=== PATIENT | male | born 1965 | race Caucasian/White ===

== ENCOUNTER 2022-07-04 07:04 | Emergency (ER) | payer OTHER, BC, SELFPAY ==
--- NOTE | ~2022-07-04 | XR_ITS ---
EXAMINATION: XR hand RT 2V DATE: 07/04/2022 07:41 INDICATION: Right hand trauma with laceration to the digits. TECHNIQUE: Posteroanterior, oblique and lateral views of the right hand were obtained. COMPARISON: None. FINDINGS: Bone alignment is normal. No fractures. 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 Diffuse soft tissue swelling about the righ t hand most prominent at the third digit. No radiopaque foreign bodies. IMPRESSION: 1. No acute osseous abnormality or radiopaque foreign body. Reviewed, dictated and finalized at location A.
[2022-07-04 07:16] VITALS: BP 147/87; PULSE 67; RESP 18; TEMP 36.5; O2SAT 100
--- NOTE | 2022-07-04 07:25 | ED.GENADULT ---
HPI - General Adult General Chief complaint: Wound/Laceration Stated complaint: right hand injury - laceration with drill Time Seen by Provider: 07/04/22 07:14 History of Present Illness HPI narrative: 56-year-old male presents for evaluation of lacerations on his right hand. Patient was working with a drill at this morning and he had a new pair of gloves which were a little bit too large. The fabric of the gloves became tangled in the drill bit and twisted thus pinching his index and middle finger. Patient is allergic to tetanus and refusing tetanus shot. He has informed me that he has had multiple cuts over the past 35 years and has never gotten tetanus and does not want the vaccination. Related Data Allergies Allergy/AdvReac Type Severity Reaction Status Date / Time Penicillins Allergy Unknown Unknown Verified 07/04/22 07:16 Tetanus Vaccines and Toxoid Allergy Unknown Fever Verified 07/04/22 07:16 Review of Systems Review of Systems: CONSTITUTIONAL: Denies fever, chills, or sweats. EYES: Denies visual changes, redness, or discharge. ENT: Denies rhinorrhea, congestion, sore throat, or otalgia. CARDIOVASCULAR: Denies chest pain, palpitations, or edema. RESPIRATORY: Denies cough or dyspnea. GASTROINTESTINAL: Denies abdominal pain, nausea, vomiting, or diarrhea. GENITOURINARY: Denies dysuria or hematuria. SKIN: Denies rash or itching. MUSCULOSKELETAL: Denies back pain, joint pain, or myalgia. NEUROLOGIC: Denies headache, numbness, or weakness. PSYCHIATRIC: Denies anxiety or depression. Exam Narrative: GENERAL: Well-appearing, well-nourished, and in no acute distress. HEAD: Normocephalic, atraumatic. EYES: PERRLA and EOMI. ENT: Nares clear, no rhinorrhea or epistaxis. Mucous membranes moist. NECK: Supple. CHEST: Clear to auscultation. No respiratory distress. HEART: Regular rate and rhythm. No murmur heard. Normal peripheral pulses. ABDOMEN: Soft, nontender, nondistended, normal active bowel sounds. EXTREMITIES: Normal range of motion. No edema. SKIN: Warm, dry, no rash., 2 lacerations on the volar side of the third and fourth digits. Right ring finger with a 1.5 cm laceration across the volar DIP joint, long finger with a 1.5 cm laceration across the volar side of the PIP joint, no tendon involvement 5 out of 5 strength in flexion, extension, abduction and abduction NEURO: No focal deficits. Alert and oriented x3. PSYCH: Normal mood and affect. Course Vital Signs Vital signs: Vital Signs Temperature 97.7 F 07/04/22 07:16 Pulse Rate 667 H 07/04/22 07:16 Respiratory Rate 18 07/04/22 07:16 Blood Pressure 147/87 H 07/04/22 07:16 Pulse Oximetry 100 07/04/22 07:16 Temperature 97.7 F 07/04/22 07:16 Pulse Rate 667 H 07/04/22 07:16 Respiratory Rate 18 07/04/22 07:16 Blood Pressure 147/87 H 07/04/22 07:16 Pulse Oximetry 100 07/04/22 07:16 Procedures Laceration Laceration 1: ====== Skin Level ====== ====== Subcutaneous Layer ====== ====== Muscle Layer ====== ====== Tendon Layer ====== Dressing: Ring finger with a 1.5 cm laceration at the DIP joint on the volar side. Using 5-0 Ethilon wound edge approximation with a single running and locking suture running horizontally across the joint. Good wound edge approximation, cosmesis, hemostasis. No complications. Right middle finger with a 1.5 cm laceration overlying the volar side of the PIP joint. Using 5-0 Ethilon a running and locking suture was used to close the wound with good wound edge approximation, cosmesis, hemostasis. No complications. Digital blocks used in each phalanx. Medical Decision Making MDM Narrative Medical decision making narrative: Wounds cleaned, debrided, irrigated copiously running locking sutures to close both wounds without complication. Patient instructed to follow-up in 7 to 10 days for suture removal. Vital Signs Vital Signs: Vital Signs Temperature 97.7 F
[2022-07-04 09:42] VITALS: BP 146/86; PULSE 68; RESP 16; O2SAT 98
== END 2022-07-04 09:43 | disposition home or self-care (01) ==
PROVIDERS: Emergency Provider Emergency Medicine; PCP Internal Medicine
DX: S61.212A Laceration without foreign body of right middle finger without damage to nail, initial encounter (principal); S61.214A Laceration without foreign body of right ring finger without damage to nail, initial encounter; W23.1XXA Caught, crushed, jammed, or pinched between stationary objects, initial encounter
CPT/HCPCS: 12002; 73120; 99283

== ENCOUNTER 2025-08-07 14:20 | Emergency (ER) | payer OTHER, BC, SELFPAY ==
--- NOTE | ~2025-08-07 | XR_ITS ---
EXAMINATION: XR knee RT 3V, 08/07/2025 14:40 CDT HISTORY: pain without trauma COMPARISON: No comparisons available. Findings: No acute fracture or malalignment. No significant degenerative changes. Soft tissues unremarkable. Impression: No acute fracture or malalignment. Reviewed, dictated and finalized at location P. Impression: No acute fracture or malalignment.
[2025-08-07 14:32] VITALS: BP 143/92; PULSE 56; RESP 18; TEMP 36.2; O2SAT 100
--- NOTE | 2025-08-07 14:39 | ED.LOWEXIN ---
HPI - Extremity Injury (Lower) General Chief Complaint: Extremity Injury, Upper Stated Complaint: R Knee Pain patient presents to the [facility] accompanied by spouse with complaints of increased pain and right knee that began over the last several weeks. Patient noted that he did taken 800 mg ibuprofen today and this did help with pain. 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 Patient concerned about arthritis versus a meniscus tear. Patient does note occasionally using a brace to the area. Denies numbness, tingling, swelling, redness or bruising. Related Data Allergies Allergy/AdvReac Type Severity Reaction Status Date / Time Penicillins Allergy Unknown Unknown Verified 08/07/25 14:33 Tetanus Vaccines and Toxoid Allergy Unknown Fever Verified 08/07/25 14:33 Review of Systems Constitutional: Constitutional: Reports as per HPI, Denies chills, Denies fatigue, Denies fever(s) and Denies weakness Eyes: Eyes: Reports no additional eye complaints ENT: Reports system reviewed and no additional complaints, except as documented Cardiovascular: Cardiovascular: Reports no additional cardiovascular complaints Respiratory: Respiratory: Reports no additional respiratory complaints Gastrointestinal: Gastrointestinal: Reports no additional gastrointestinal complaints Genitourinary: Genitourinary: Reports no additional male genitourinary complaints Musculoskeletal: Musculoskeletal: Reports as per HPI, Reports arthralgias, Denies joint swelling and Denies muscle cramps Integumentary/Breasts: Skin/Breast: Reports as per HPI, Denies pruritus, Denies rash and Denies skin ulcer Neurologic: Reports as per HPI, Denies numbness and Denies weakness Psychiatric: Psychiatric: Reports no additional psychiatric complaints Endocrine: Endocrine: Reports no additional endocrine complaints Hematologic/Lymphatic: Hematologic/Lymphatic: Reports no additional hematologic/lymphatic complaints Allergic/Immunologic: Allergic/Immunologic: Reports no additional allergic/immunologic complaints Exam Const: General: healthy appearing and no acute distress Nutritional Appearance: well nourished Orientation/consciousness: patient oriented x3 Limitations: no limitations Resp: Effort & Inspection: normal respiratory effort Auscultation: clear to auscultation bilaterally Cardio: Rate: regular rate Rhythm: regular rhythm Skin: General skin exam: normal color Rashes: no rashes Wounds: no wounds Neuro: General: patient oriented x3 Speech: normal speech Gait exam (Neuro): Normal gait present Extrem: Right lower extremity: knee ( Callus noted over right knee) Details: abnormal to inspection, tenderness Location: of the medial joint line, normal ROM and knee ligament exam normal; no abrasions, no ecchymosis, no crepitus, no deformity and no unusual warmth Psych: Mental Status: mental status grossly normal Affect: normal affect Attitude: cooperative Course Course Level of Care: Express Care Visit Vital Signs Vital signs: Vital Signs Temperature 97.1 F L 08/07/25 14:32 Pulse Rate 56 L 08/07/25 14:32 Respiratory Rate 18 08/07/25 14:32 Blood Pressure 143/92 H 08/07/25 14:32 Pulse Oximetry 100 08/07/25 14:32 Oxygen Delivery Room Air 08/07/25 14:32 Temperature 97.1 F L 08/07/25 14:32 Pulse Rate 56 L 08/07/25 14:32 Respiratory Rate 18 08/07/25 14:32 Blood Pressure 143/92 H 08/07/25 14:32 Pulse Oximetry 100 08/07/25 14:32 Oxygen Delivery Room Air 08/07/25 14:32 MDM - Extremity Injury (Lower) MDM Narrative Medical decision making narrative: x-rays ordered. Potential for internal injury recommended follow-up with primary care or orthopedics The patient was evaluated by myself in the express care. History is obtained from patient who is an independent historian and physical exam was performed. Available medical records were reviewed at this time. Exam findings show no acute concerns or changes; patient is non-toxic appearing and is in no distress. Patient is appropriate for outpatient treatment and follow-up. I have evaluated and discussed social determinants of health with the patient that could potentially impact subsequent diagnosis and treatment plans. Differential diagnosis and treatment plan were discussed with the patient. Patient agrees with discussion and after shared medical decision making agrees with plan of care. All questions were answered to the patient's satisfaction. Differential Diagnosis Differential diagnosis: Likely ankle sprain and strain, acute internal derangement of knee and other Medical Records Attestation: I reviewed the patient's medical records. Imaging Data Attestation: I personally reviewed and interpreted this imaging study as follows: My impression: no acute findings Radiologist's impression: Impression: No acute fracture or malalignment. Reviewed, dictated and finalized at location P. Discharge Plan Discharge Clinical Impression: Acute pain of right knee Patient Disposition: Home Condition: Stable Instructions: Antibiotic Form, Knee Pain (ED), Arthralgia (ED) Patient Language: Guatemalan Prescriptions: New naproxen 500 mg tablet 500 mg PO BID PRN (Reason: pain) Qty: 30 0RF tizanidine 4 mg tablet 4 mg PO BID PRN (Reason: muscle spasticity) Qty: 20 0RF Follow-up/Referrals: PHYSICIAN,ROADWAY ENGINEER [Primary Care Provider, Internal Medicine] Time of Disposition: 15:12
== END 2025-08-07 15:22 | disposition home or self-care (01) ==
PROVIDERS: Emergency Provider Nurse Practitioner Family
DX: M25.561 Pain in right knee (principal)
CPT/HCPCS: 73562; 99213; G0463